=== PATIENT | female | born 1965 | race Caucasian/White ===

== ENCOUNTER 2020-05-09 12:00 | Day surgery (SDC) | payer OTHER ==
[~2020-05-09] VITALS: Ht 165.1 cm; Wt 83.9 kg
[~2020-05-09 12:00] MED LIST: COZAAR25 MG; SYNTHROID137 MCG
[2020-05-09] MEDS ORDERED: ULTRAM50 MG PO (17:43)
[2020-05-09] MEDS ORDERED: TAMS0.4C PO (17:44)
[2020-05-09] MEDS ORDERED: KETO10TA2 PO (17:45)
== END 2020-05-09 20:00 | disposition home or self-care (01) ==
LOC: CIR.AMB 12:00 → EDSTATUS 17:15 → SEC-K 17:32 → O/R 17:32 → CIR.AMB 20:00 → O/R 22:20
PROVIDERS: ATTEND Specialist
DX: N20.1 Calculus of ureter (principal); Z20.828 Contact with and (suspected) exposure to other viral communicable diseases